=== PATIENT | male | born 1995 | race Two or more races ===

== ENCOUNTER 2021-03-15 22:41 | Emergency (ER) | payer OTHER ==
[~2021-03-15] VITALS: Ht 160 cm; Wt 80.0 kg
--- NOTE | 2021-03-15 23:16 | NUR ---
ASSUMED CARE OF PATIENT. PATIENT BIB [facility] FOR COUGH, SOB AND CHEST PAIN. PT REPORTS HE HAD A RECENT COVID EXPOSURE. PULSE OX 91 RA. 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 EKG DONE. CALL LIGHT IN PLACE WILL CONTINUE TO MONITOR.
--- NOTE | 2021-03-15 23:20 | NUR ---
PT HAS BEEN SEEN BY DR JENKINS
[2021-03-15] MEDS ORDERED: KETOROLAC 60 MG/2 ML IM ONE (23:30)
[2021-03-15] MEDS ORDERED: KETOROLAC 60 MG/2 ML ONE (23:45)
--- NOTE | 2021-03-15 23:49 | NUR ---
PT REFUSED TORADOL. PT RESTING IN ROOM. VS STABLE. NO ACUTE DISTRESS NOTED. WILL CONTINUE TO MONITOR.
--- NOTE | 2021-03-16 00:08 | NUR ---
DR HOYOS HAD UPDATED PATIENT. PATIENT TO BE DISCHARGED
[2021-03-16 00:20] VITALS: BP 131/74
== END 2021-03-16 00:29 | disposition home or self-care (01) ==
LOC: ED 03-16 00:10
DX: J15.9 Unspecified bacterial pneumonia (principal); R06.00 Dyspnea, unspecified
CPT/HCPCS: 71045; 93005; 99283

== ENCOUNTER 2021-07-26 08:25 | Emergency (ER) | payer OTHER ==
[~2021-07-26] VITALS: Ht 167.6 cm; Wt 100.4 kg
[2021-07-26 08:37] VITALS: BP 122/76
--- NOTE | 2021-07-26 09:00 | NUR ---
ASSUMED CARE OF PATIENT. WAITING FOR ED MD ASSESMENT
== END 2021-07-26 09:45 | disposition home or self-care (01) ==
LOC: ED 08:58
DX: J45.909 Unspecified asthma, uncomplicated (principal); Z76.0 Encounter for issue of repeat prescription
CPT/HCPCS: 99281; 99283